=== PATIENT | female | born 1970 | race Two or more races ===

== ENCOUNTER 2017-11-05 07:22 | Day surgery (SDC) | payer OTHER ==
[~2017-11-05 07:22] MED LIST: DIALYVITE 800-1 EACH; METHOTREXATE 2.5 MG; VITAMINA D
[2017-11-05] MEDS ORDERED: PERCOCET 5-3251 EACH PO (12:19)
== END 2017-11-05 19:00 | disposition home or self-care (01) ==
LOC: CIR.AMB 07:22
DX: D06.0 Carcinoma in situ of endocervix (principal)